=== PATIENT | male | born 2005 | race Caucasian/White ===

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

== ENCOUNTER 2023-07-09 11:56 | Emergency (ER) | payer OTHER ==
[~2023-07-09 11:56] MED LIST changes: +NAPROXEN500 MG PO
[2023-07-09] MEDS ORDERED: BACTRIM DS1 TAB PO (17:40)
[2023-07-09] MEDS ORDERED: CEPHALEXIN500 MG PO (17:40)
== END 2023-07-09 13:17 | disposition left against medical advice (07) | DRG 951 ==
LOC: ED 11:56 → LWOBS 13:16 → ED 13:16 → LWOBS 13:17
DX: Z53.21 Procedure and treatment not carried out due to patient leaving prior to being seen by health care provider (principal)

== ENCOUNTER 2023-07-09 16:59 | Emergency (ER) | payer OTHER ==
[~2023-07-09] VITALS: Ht 167.6 cm; Wt 68.0 kg
[2023-07-09 17:10] VITALS: BP 127/70
[2023-07-09] MEDS ORDERED: BACTRIM DS1 TAB PO (17:40)
[2023-07-09] MEDS ORDERED: CEPHALEXIN500 MG PO (17:40)
[2023-07-09 18:01] VITALS: BP 90/57
[2023-07-09 18:03] VITALS: BP 90/57
== END 2023-07-09 18:14 | disposition home or self-care (01) ==
LOC: ED 16:59
DX: L05.01 Pilonidal cyst with abscess (principal)

== ENCOUNTER 2023-07-10 09:00 | Emergency (ER) | payer OTHER ==
[~2023-07-10] VITALS: Ht 167.6 cm; Wt 64.2 kg
[2023-07-10] VITALS (13 sets, daily range): BP systolic 106–131; BP diastolic 68–88
[~2023-07-10 09:00] MED LIST changes: +CEPHALEXIN500 MG PO
[2023-07-10 10:01] LABS: BASO% 0.3 % (0-3); EOS% 1.9 % (0-8); HEMOGLOBIN 16.5 g/dl (14.0-18.0); IMMATURE GRANULOCYTES 0.2 % (0.0-5.0); LYMPH% 35.4 % (15-41); MEAN CELL VOLUME 82.8 fL CALC (80.0-100.0); MEAN CORPUSCULAR HGB 29.2 pG CALC (26.0-32.0); MEAN CORPUSCULAR HGB CONC 35.3 g/dL CAL (32.0-36.0); MONO% 7.6 % (2-13); NEUT# 3.14 thou/uL (1.82-7.42); NEUT% 54.6 % (42-76); RED BLOOD COUNT 5.65 mill/uL (4.70-6.10); RED CELL DISTRI WIDTH 11.7 % (11.5-15.5)
[2023-07-10 10:02] LABS: HEMATOCRIT 46.8 % (39.0-50.0)
[2023-07-10 10:14] LABS: ALBUMIN 4.6 g/dL (3.2-5.0); ALKALINE PHOSPHATASE 78 u/l (38-126); ANION GAP 12 (6-22 (CALC)); BILIRUBIN, TOTAL 0.5 mg/dL (0.2-1.3); BUN 17 mg/dL (8-21); BUN/CREATININE RATIO 24 (12-20 (CALC)); CHLORIDE 106 mmol/l (95-108); CREATININE 0.7 mg/dL (0.7-1.3); GFR FOR AFR.AMER. > 60 ML/MIN (>=60 (CALC)); GFR OTHER RACES > 60 ML/MIN (>=60 (CALC)); POTASSIUM 4.8 mmol/l (3.5-5.1); SGOT/AST 35 u/l (17-59); SODIUM 140 mmol/l (137-146); TOTAL PROTEIN 7.4 g/dL (6.3-8.2)
[2023-07-10 10:25] LABS: CARBON DIOXIDE 27 mmol/l (22-30)
== END 2023-07-10 12:28 | disposition home or self-care (01) ==
LOC: ED 09:00
PROVIDERS: Family Medicine
DX: Z48.01 Encounter for change or removal of surgical wound dressing (principal)
CPT/HCPCS: Q9967